=== PATIENT | male | born 1970 | race Caucasian/White ===

== ENCOUNTER 2018-07-29 19:39 | Emergency (ER) | payer OTHER, BC ==
[~2018-07-29] VITALS: Ht 193 cm; Wt 131.5 kg
[~2018-07-29 19:39] MED LIST: ACETAMINOPHEN-1 EAC1 PO; CEPHALEXIN 500500 M3 PO; KEFLEX500 MG PO; LEVOTHYROXINE0.05 MG PO; NORCO 5-325 TA1 EAC1 PO; TYLENOL ARTHRI650 MG PO
[2018-07-29] MEDS ORDERED: ABILIFY15 MG PO (19:51)
[2018-07-29] MEDS ORDERED: WELLBUTRIN 75 M75 M1 PO (19:51)
[2018-07-29] MEDS ORDERED: TRAZODONE HCL50 MG PO (19:52)
[2018-07-29] MEDS ORDERED: FLEXERIL PO (20:34)
[2018-07-29 20:57] VITALS: BP 150/84
== END 2018-07-29 20:58 | disposition home or self-care (01) ==
LOC: M.ERS 19:39
DX: M77.11 Lateral epicondylitis, right elbow (principal); Z90.49 Acquired absence of other specified parts of digestive tract; Z96.652 Presence of left artificial knee joint